=== PATIENT | male | born 1945 | race Caucasian/White ===

== ENCOUNTER 2017-04-10 08:06 | Day surgery (SDC) | payer OTHER, MEDICARE ==
[~2017-04-10] VITALS: Ht 172.7 cm; Wt 85.7 kg
[~2017-04-10 08:06] MED LIST: ALLOPURINOL300 MG PO; AMLODIPINE BESY10 MG PO; ASPIRIN81 M2 PO; BACTRIM,SEPT1 TABLET PO; FISH OIL 1,0001 EAC7 PO; FLOMAX0.4 MG PO; HYDROCHLOROTHIA25 MG PO; IRON325 M1 PO; K-DUR20 MEQ PO; LASIX20 MG PO; LO-DOSE ASPIRIN81 M1 PO; METFORMIN HCL500 MG PO; MOBIC15 MG PO; OXYCODONE HCL5 MG PO; PROSCAR5 MG PO; PROVENTIL,2.5 MG/3 M IH; SIMVASTATIN40 MG PO; TOPROL XL25 MG PO; TYLENOL EXTRA500 MG PO; XARELTO10 MG PO
[2017-04-10] MEDS ORDERED: VENTOLIN HFA18 GM IH (08:41)
[2017-04-10 08:43] LABS: POINT-OF-CARE METER ID UU14174212
[2017-04-10 08:50] VITALS: BP 142/87
[2017-04-10 11:39] LABS: POINT-OF-CARE METER ID UU13113675
[2017-04-10 13:17] VITALS: BP 137/83
[2017-04-10 14:25] VITALS: BP 132/71
== END 2017-04-10 14:40 | disposition home or self-care (01) ==
LOC: SDC 08:06
PROVIDERS: Urology
DX: N20.2 Calculus of kidney with calculus of ureter (principal); E11.9 Type 2 diabetes mellitus without complications; I10 Essential (primary) hypertension; I25.10 Atherosclerotic heart disease of native coronary artery without angina pectoris; J44.9 Chronic obstructive pulmonary disease, unspecified; Z83.3 Family history of diabetes mellitus; Z82.49 Family history of ischemic heart disease and other diseases of the circulatory system; Z80.0 Family history of malignant neoplasm of digestive organs; Z82.0 Family history of epilepsy and other diseases of the nervous system; Z79.82 Long term (current) use of aspirin; Z79.84 Long term (current) use of oral hypoglycemic drugs; Z79.899 Other long term (current) drug therapy; Z95.1 Presence of aortocoronary bypass graft; I25.2 Old myocardial infarction
CPT/HCPCS: 82365 90; 82948; C1876; J0330; J0690; J1100; J1580; J2405; J3010